=== PATIENT | female | born 1990 | race Caucasian/White ===

== ENCOUNTER 2018-11-02 20:25 | Inpatient (IN) | payer OTHER ==
[2018-11-02] MEDS ORDERED: AMPICILLIN - 2 GM in SODIUM CHLORIDE 100 ML IVPB ONE (21:05)
[2018-11-02] MEDS ORDERED: DEXTROSE 5%-LACTATED RINGERS 1,000 ML IV SCH (21:05)
--- NOTE | 2018-11-02 21:39 | HP ---
Past Medical History - Primary Care Physician PCP:: Phylicia Xavier - Admission Chief Complaint: 27 yrs 38.4/7 weeks c/o onset LP since 1.00 PM . pt in active labor . h/o GBS Pos History of Present Illness: Pnc at , [facility] wt gain 20 lbs panel 03/31/18 O Pos, HepBSag neg, Rpr nr, lead neg , Rubella igg pos, Sickle neg , lead neg , Gc/ct neg , Pap done, , CF screen neg 01/01/16 urine culture pos for GBS bacteriuria, treated with Po keflex on 04/28/18 07/30/18 Quantiferon neg , 1 hr Gtt 84, RPR nr 10/27/18 h/h 13/37.8, Plt 214, , GBS pos, gc/ct neg , Hiv nr sono 1st trimester 04/30/18 12.0 wks, edc 11/12/18 Neg Nt screen , AFP screen not done Growth songrams were done by M 07/23/18 anatomy sono done : 28.3 weeks, , Vx , post placenta, Marginal placenta cord insertion sono 36.5 days, NOEMY 17.2, post placenta, efw 2975 gm History Source: Patient, Medical Record Limitations to Obtaining History: No Limitations - Past Medical History 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 No: Gastritis, GERD Hepatobiliary: No: Hepatitis B Renal/: No: UTI ...: 3 ...Para: 2 ...LMP: 02/05/18 ... Weeks Gestation by Dates: 38.4 ...EDC by Dates: 11/12/18 ...EDC by Sono: 11/12/18 (38.4/7 weeks by sono ) Heme/Onc: Yes: Anemia. No: Sickle Cell Trait Infectious Disease: No: AIDS, HIV, STD's, Tuberculosis Psych: No: Addictions, Anxiety, Bipolar, Depression, Panic, Psychosis, Schizophrenia, Other Endocrine: No: Diabetes Insipidus, Diabetes Mellitus, Hypothyroidism - Past Surgical History Past Surgical History: Yes: None Hx Myomectomy: No Hx Transabdominal Cerclage: No - Smoking History Smoking history: Never smoked Have you smoked in the past 12 months: No - Alcohol/Substance Use Hx Alcohol Use: No History of Substance Use: reports: None - Social History History of Recent Travel: No Home Medications - Allergies Allergies/Adverse Reactions: Allergies Allergy/AdvReac Type Severity Reaction Status Date / Time No Known Allergies Allergy Verified 04/22/16 17:10 - Home Medications Home Medications: Ambulatory Orders Pnv95/Iron Fum/Folic Acid [ Caplet] 1 each PO DAILY 04/22/16 Acetaminophen [Tylenol .Regular Strength -] 650 mg PO Q3H PRN #0 tablet Ibuprofen [Motrin -] 200 mg PO Q4H PRN #0 tablet 04/24/16 Physical Exam - Maternity Vital Signs: Selected Entries 11/02/18 11/02/18 21:30 22:00 Temperature 98.2 F 98.4 F Pulse Rate 80 86 Blood Pressure 130/84 138/82 Constitutional: Yes: Well Nourished, Obese Eyes: Yes: WNL HENT: Yes: WNL, Normocephalic Neck: Yes: WNL, Trachea Midline Cardiovascular: Yes: WNL, Bruit Lungs: Clear to auscultation Breast(s): Yes: WNL - Abdominal Exam/OB Fundal Height: 38 Number of Fetuses: Single Presentation: Vertex Contractions: Yes Intensity: Mod/Strong (3-4 dates) Monitor Mode: External Heart Rate (range): 130-140 Heart Rate Location: [facility] Category: I Accelerations: Uniform Decelerations: None - Vaginal Exam/OB Vaginal Bleediing: No Speculum Exam: No Dilatation (cm): 6 Effacement (%): 100 Amniotic Membrane Status: Intact Nitrazine Test: Negative Presentation: Vertex/Position Station: -2 - Physical Exam Musculoskeletal: Yes: WNL Extremities: Yes: WNL. No: Calf Tenderness Edema: LLE: 1+, RLE: 1+ Integumentary: Yes: WNL Deep Tendon Reflex Grade: Normal +2 ...Motor Strength: WNL Psychiatric: Yes: WNL, Alert, Oriented - Labs Lab Results: Laboratory Tests 11/02/18 11/02/18 11/02/18 21:45 21:45 21:45 WBC 9.8 Hgb 13.1 Hct 37.7 MCV 84.6 Plt Count 197 PT with INR 13.10 H INR 1.11 H PTT (Actin FS) 28.3 Sodium 138 Potassium 3.7 Chloride 108 H Carbon Dioxide 21 BUN 4 L Creatinine 0.5 L Random Glucose 90 Calcium 8.2 L Blood Type Antibody Screen 11/02/18 21:45 WBC Hgb Hct MCV Plt Count PT with INR INR PTT (Actin FS) Sodium Potassium Chloride Carbon Dioxide BUN Creatinine Random Glucose Calcium Blood Type O POSITIVE Antibody Screen Negative Problem List - Problems (1) with 38 completed weeks gestation Code(s): Z3A.38 - 38 WEEKS GESTATION OF (2) Labor established Code(s): [id number] - (3) Positive GBS test Code(s): B95.1 - STREPTOCOCCUS, GROUP B, CAUSING DISEASES CLASSD ELSR Assessment/Plan 27 yrs , 38.4/7 weeks in active labor gbs pos, rx ampicillin prophylaxis pt declines pain meds trial of vaginal delivery .
[2018-11-02 21:49] VITALS: BMI 39.9
[2018-11-02 22:09] LABS: BASO % 0.2 % (0-2.0); EOS % 0.4 % (0-4.5); HEMATOCRIT 37.7 % (32.4-45.2); HEMOGLOBIN 13.1 GM/dL (10.7-15.3); LYMPH % 24.5 % (8-40); MCH 29.3 pg (25.7-33.7); MCHC 34.7 g/dl (32.0-36.0); MEAN CELL VOLUME 84.6 fl (80-96); MEAN PLT VOLUME 9.6 fl (7.5-11.1); MONO % 6.9 % (3.8-10.2); PLATELET COUNT 197 K/MM3 (134-434); RBC 4.46 M/mm3 (3.60-5.2); RDW 13.2 % (11.6-15.6); WHITE BLOOD COUNT 9.8 K/mm3 (4.0-10.0)
[2018-11-02 22:18] LABS: INR 1.11 (0.83-1.09); PROTHROMBIN TIME (PATIENT) 13.1 SEC (9.7-13.0)
[2018-11-02 22:21] LABS: ACTIVATED PTT 28.3 SECONDS (25.2-36.5)
[2018-11-02 22:31] LABS: PLATELET ESTIMATE ADEQUATE
[2018-11-02 22:34] LABS: ANION GAP 10 MMOL/L (8-16); BLOOD UREA NITROGEN 4 mg/dL (7-18); CALCIUM 8.2 mg/dL (8.5-10.1); CHLORIDE 108 mmol/L (98-107); CO2 21 mmol/L (21-32); CREATININE 0.5 mg/dL (0.55-1.3); GLUCOSE,RANDOM 90 mg/dL (74-106); POTASSIUM 3.7 mmol/L (3.5-5.1); SODIUM 138 mmol/L (136-145)
[2018-11-02] MEDS ORDERED: AMPICILLIN SODIUM 1 GM VIAL ONE (23:55)
[2018-11-02] MEDS ORDERED: LIDOCAINE HCL 1% PRESERVATIVE FREE - 30ML VIAL ONE (23:56)
[2018-11-02] MEDS ORDERED: OXYTOCIN 20 UNITS in 0.9% NS 20 UNIT/1,000 ML INFUS.BAG IV ONE (23:56)
[2018-11-03] MEDS: METHYLERGONOVINE MALEATE 0.2 MG/1 ML AMP IM PRN ×2 (00:10→05:58)
[2018-11-03] MEDS: AMPICILLIN - 1 GM in SODIUM CHLORIDE 100 ML IVPB SCH ×2 (00:30→05:55)
--- NOTE | 2018-11-03 00:40 | PN ---
Progress Note, Labor Vaginal Exam #1 Labor Exam Date: 11/02/18 Labor Exam Time: 23:52 Heart Rate (range): 170 Dilatation: 9 Effacement (%): 100 Amniotic Membrane Status: Ruptured (AROM , clear) Presentation: Vertex/Position Station: -1 (-1/0) Remarks: fhr cat-1 uc q2-3 min pt wants to push 23.54 fully dilated , vx +2 Selected Entries 11/02/18 23:00 Pulse Rate 83 Blood Pressure 138/79
--- NOTE | 2018-11-03 00:47 | PN ---
Delivery - Delivery Vaginal Delivery: No Problems, Spontaneous (baby delievered in MAY position, immediate oral & nasal suction was done 1st degree vaginal laceration noted, sutured with chr catgut #2/0 under local anesthesia .Placenta removed completely with membranes. Uterus was atonic, blood clots from uterus removed . 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 4 weeks admitted in labor pnc at [address] [place] [address] pos , she received one dose of 2 gm IV Ampicillin prior to delivery & 2nd dose after delivery pt stable .
[2018-11-03] MEDS ORDERED: BENZOCAINE 20% 57 GM BOTTLE TP PRN (00:51)
[2018-11-03] MEDS ORDERED: oxyCODONE HCL 5 MG TABLET PO PRN (00:51)
[2018-11-03] MEDS ORDERED: BISACODYL 10 MG SUPP.RECT RC PRN (00:51)
[2018-11-03] MEDS ORDERED: BENZOCAINE 28 GM HEMORRHOIDAL OINTMENT TP PRN (00:51)
[2018-11-03] MEDS ORDERED: WITCH HAZEL 50% (TUCKS) 40 PAD/JAR PAD TP PRN (00:51)
[2018-11-03] MEDS ORDERED: OXYTOCIN 20 UNITS in 0.9% NS 20 UNIT/1,000 ML INFUS.BAG IV SCH (01:00)
[2018-11-03] MEDS: FERROUS SO4 325 MG TABLET (FP) PO SCH ×2 (08:30→17:36)
[2018-11-03] MEDS: IBUPROFEN 600 MG TABLET (FP) PO PRN ×2 (08:30→17:53)
[2018-11-03] MEDS: ACETAMINOPHEN 325 MG TABLET (FP) PO PRN ×2 (08:32→17:54)
--- NOTE | 2018-11-03 09:07 | PN ---
Post Progress Note - Subjective Subjective: no complains pt was given inj Methergine .2mg im at 6.00AM Post Day: 1 Type of Delivery: Vital Signs: Vital Signs Temperature 98.3 F 11/03/18 06:04 Pulse Rate 90 11/03/18 06:04 Respiratory Rate 20 11/03/18 06:04 Blood Pressure 127/63 11/03/18 06:04 O2 Sat by Pulse Oximetry (%) 98 11/03/18 01:30 Breast Exam: Yes: Soft, Other (BF ). No: Engorged Uterus: Yes: Fundus Firm, Fundus below umbilicus Lochia: Yes: Rubra Lochia, amount: Moderate Extremities: Yes: Calves non-tender Perineum: Yes: Intact, Laceration (1st degree laceration sutured ) Activity: Ambulating - Labs Labs: CBC WBC 9.8 K/mm3 (4.0-10.0) 11/02/18 21:45 RBC 4.46 M/mm3 (3.60-5.2) 11/02/18 21:45 Hgb 13.1 GM/dL (10.7-15.3) 11/02/18 21:45 Hct 37.7 % (32.4-45.2) 11/02/18 21:45 MCV 84.6 fl (80-96) 11/02/18 21:45 MCH 29.3 pg (25.7-33.7) 11/02/18 21:45 MCHC 34.7 g/dl (32.0-36.0) 11/02/18 21:45 RDW 13.2 % (11.6-15.6) 11/02/18 21:45 Plt Count 197 K/MM3 (134-434) 11/02/18 21:45 MPV 9.6 fl (7.5-11.1) 11/02/18 21:45 Absolute Neuts (auto) 6.7 K/mm3 (1.5-8.0) 11/02/18 21:45 Neutrophils % 68.0 % (42.8-82.8) 11/02/18 21:45 Lymphocytes % 24.5 % (8-40) D 11/02/18 21:45 Monocytes % 6.9 % (3.8-10.2) 11/02/18 21:45 Eosinophils % 0.4 % (0-4.5) 11/02/18 21:45 Basophils % 0.2 % (0-2.0) 11/02/18 21:45 Nucleated RBC % 0 % (0-0) 11/02/18 21:45 Platelet Estimate Adequate 11/02/18 21:45 Platelet Comment Giant platelets 11/02/18 21:45 Problem List - Problems (1) with 38 completed weeks gestation Code(s): Z3A.38 - 38 WEEKS GESTATION OF (2) Labor established Code(s): KPE3228 - (3) Positive GBS test Code(s): B95.1 - STREPTOCOCCUS, GROUP B, CAUSING DISEASES CLASSD ELSWHR (4) Vaginal delivery Code(s): O80 - ENCOUNTER FOR FULL-TERM UNCOMPLICATED DELIVERY (5) Encounter for assessment Code(s): Z39.2 - ENCOUNTER FOR ROUTINE FOLLOW-UP Assessment/Plan stable. . plan repeat cbc today pt desires discharge tomorrow.
[2018-11-03 09:17] LABS: BASO % 0.3 % (0-2.0); EOS % 0.1 % (0-4.5); HEMATOCRIT 37.4 % (32.4-45.2); HEMOGLOBIN 12.8 GM/dL (10.7-15.3); LYMPH % 16.7 % (8-40); MCH 28.9 pg (25.7-33.7); MCHC 34.2 g/dl (32.0-36.0); MEAN CELL VOLUME 84.6 fl (80-96); MEAN PLT VOLUME 9.9 fl (7.5-11.1); MONO % 6.8 % (3.8-10.2); NEUT % 76.1 % (42.8-82.8); PLATELET COUNT 216 K/MM3 (134-434); RBC 4.42 M/mm3 (3.60-5.2); RDW 13.3 % (11.6-15.6); WHITE BLOOD COUNT 15.1 K/mm3 (4.0-10.0)
[2018-11-03] MEDS ORDERED: DIPHTH,PERTUSS(ACELL),TET 0.5 ML DISP.SYRIN IM ONE (10:00)
[2018-11-03] MEDS ORDERED: FLU VACCINE QUAD 60 MCG/0.5 ML (MDV 18-19) IM ONE (10:00)
[2018-11-03] MEDS: PRENATAL VITAMINS W/ FOLIC ACID TABLET (FP) PO SCH (10:36)
[2018-11-04] MEDS: IBUPROFEN 600 MG TABLET (FP) PO PRN (06:33)
[2018-11-04] MEDS: ACETAMINOPHEN 325 MG TABLET (FP) PO PRN (06:33)
[2018-11-04 07:07] LABS: BASO % 0.6 % (0-2.0); EOS % 0.8 % (0-4.5); HEMATOCRIT 34.3 % (32.4-45.2); MCH 27.8 pg (25.7-33.7); MCHC 32.2 g/dl (32.0-36.0); MEAN CELL VOLUME 86.3 fl (80-96); MONO % 8.1 % (3.8-10.2); NEUT % 62.5 % (42.8-82.8); PLATELET COUNT 178 K/MM3 (134-434); RBC 3.97 M/mm3 (3.60-5.2); RDW 13.3 % (11.6-15.6); WHITE BLOOD COUNT 9.5 K/mm3 (4.0-10.0)
--- NOTE | 2018-11-04 07:17 | DS ---
Physical Examination Vital Signs: Vital Signs Temperature 98.0 F 11/03/18 20:33 Pulse Rate 90 11/03/18 20:33 Respiratory Rate 20 11/03/18 20:33 Blood Pressure 111/70 11/03/18 20:33 O2 Sat by Pulse Oximetry (%) 98 11/03/18 01:30 Constitutional: Yes: Well Nourished, No Distress, Calm Eyes: Yes: WNL, Conjunctiva Clear, EOM Intact HENT: Yes: WNL, Atraumatic, Normocephalic Neck: Yes: WNL, Supple, Trachea Midline Cardiovascular: Yes: WNL, Regular Rate and Rhythm Respiratory: Yes: WNL, Regular, CTA Bilaterally Gastrointestinal: Yes: WNL, Normal Bowel Sounds Musculoskeletal: Yes: WNL Extremities: Yes: WNL Edema: No Integumentary: Yes: WNL Neurological: Yes: WNL, Alert, Oriented ...Motor Strength: WNL Psychiatric: Yes: WNL Labs: CBC, BMP 11/02/18 21:45 Discharge Summary Reason For Visit: LABOR Current Active Problems Encounter for assessment (Acute) Positive GBS test (Acute) with 38 completed weeks gestation (Acute) Vaginal delivery (Acute) Hospital Course: 27yo @ term presented in active labor Had spontaneous vaginal delivery. Her course was unremarkable. She was discharged home on PPD#2 in stable condition. Instructed to follow up for her visit in 4-6 weeks Condition: Stable - Instructions Diet, Activity, Other Instructions: Post Instructions DIET: Continue good diet high in protein, calcium, and iron rich foods. Drink at least eight (8) glasses of water daily in addition to other fluids. ct Regular diet MEDICATIONS: Continue vitamins and iron as previously directed. Motrin and Tylenol may be taken for minor discomfort. ACTIVITY: Mild to moderate exercise may be started in two (2) weeks. Take frequent rest periods. Resume normal activity after six (6) week check up. WOUND CARE OF OPERATIVE SITE: Continue use of perineal bottle until vaginal discharge stops. Keep area clean. Shower daily. Keep abdominal wound dry. Report any drainage or redness to physician. Tub baths, tampons and douches are not permitted for 6 weeks. cct Breast feeding & or Bottle feeding BREAST CARE: (For those that are not ): If engorgement occurs: Wear tight fitting bra. Take Tylenol or Motrin for pain. Apply cold packs (ice in bags to each breast ) FAMILY PLANNING: There are many control alternatives to pursue and they should be discussed at your first office visit. You may resume sexual activity after your six (6) week check up. (Remember, is not a contraceptive) NEXT PHYSICIAN APPOINTMENT: Be certain to call for a four (4) week appointment, unless otherwise directed. Call Clinic or got to Emergency Dept if you have any of the following: Heavy vaginal bleeding Painful urination Leg pain Unusual odor noted to vaginal bleeding High fever Red streaking noted on breast Post Instructions DIET: Continue good diet high in protein, calcium, and iron rich foods. Drink at least eight (8) glasses of water daily in addition to other fluids. ___ Regular diet ___ LoCarb/Low Calorie Diet ___ Diabetic Diet MEDICATIONS: Continue vitamins and iron as previously directed. Motrin and Tylenol may be taken for minor discomfort. ACTIVITY: Mild to moderate exercise may be started in two (2) weeks. Take frequent rest periods. Resume normal activity after six (6) week check up. WOUND CARE OF OPERATIVE SITE: Continue use of perineal bottle until vaginal discharge stops. Keep area clean. Shower daily. Keep abdominal wound dry. Report any drainage or redness to physician. Tub baths, tampons and douches are not permitted for 6 weeks. ____ Breast feeding ___ Bottle feeding BREAST CARE: (For those that are not ): If engorgement occurs: Wear tight fitting bra. Take Tylenol or Motrin for pain. Apply cold packs (ice in bags to each breast ) FAMILY PLANNING: There are many control alternatives to pursue and they should be discussed at your first office visit. You may resume sexual activity after your six (6) week check up. (Remember, is not a contraceptive) NEXT PHYSICIAN APPOINTMENT: Be certain to call for a six (6) week appointment, unless otherwise directed. Call Clinic or got to Emergency Dept if you have any of the following: Heavy vaginal bleeding Painful urination Leg pain Unusual odor noted to vaginal bleeding High fever Red streaking noted on breast Referrals: Phylicia Xavier MD [Staff Physician] - Disposition: HOME - Home Medications Comprehensive Discharge Medication List: Ambulatory Orders Pnv95/Iron Fum/Folic Acid [ Caplet] 1 each PO DAILY 04/22/16 Acetaminophen [Tylenol .Regular Strength -] 650 mg PO Q3H PRN tablet 11/03/18 Ferrous Sulfate [Feosol] 325 mg PO DAILY #30 tab 11/03/18 Ibuprofen [Motrin -] 200 mg PO Q4H PRN tablet 11/03/18 Vitamins (Sjr) - 1 tab PO DAILY #30 tablet 11/03/18
[2018-11-04] MEDS: FERROUS SO4 325 MG TABLET (FP) PO SCH (08:19)
[2018-11-04 09:25] VITALS: BP 138/80; PULSE 98; TEMP 98.2
[2018-11-04] MEDS: PRENATAL VITAMINS W/ FOLIC ACID TABLET (FP) PO SCH (09:45)
[2018-11-04] MEDS ORDERED: SENNOSIDES/DOCUSATE COMBO (SENNA PLUS) TABLET (UD) PO PRN (22:00)
== END 2018-11-04 14:40 | disposition home or self-care (01) | DRG 560 ==
LOC: JLDR 20:25 → J3W 11-03 02:00
PROVIDERS: ADMIT Obstetrics & Gynecology; ATTEND Obstetrics & Gynecology
PROC: 10E0XZZ Delivery of Products of Conception, External Approach (ICD-10-PCS; principal; 2018-11-02)
PROC: 0HQ9XZZ Repair Perineum Skin, External Approach (ICD-10-PCS; 2018-11-02)
DX: O99.824 Streptococcus B carrier state complicating childbirth (principal); O70.0 First degree perineal laceration during delivery; O99.214 Obesity complicating childbirth; Z3A.38 38 weeks gestation of pregnancy; Z37.0 Single live birth
CPT/HCPCS: 36415; 59409; 80048; 85025; 85610; 85730; 86593; 86850; 86900; 86901; 90686; 90715; G0008

== ENCOUNTER 2021-10-04 17:49 | Inpatient (IN) | payer OTHER ==
[2021-10-04] MEDS ORDERED: AMPICILLIN SODIUM 2 GM VIAL ONE (19:26)
[2021-10-04] MEDS ORDERED: AMPICILLIN - 2 GM in SODIUM CHLORIDE 100 ML IVPB ONE (19:30)
[2021-10-04 20:27] LABS: BASO % 0.5 % (0-2.0); EOS % 0.5 % (0-4.5); HEMATOCRIT 38.5 % (32.4-45.2); HEMOGLOBIN 12.9 GM/dL (10.7-15.3); LYMPH % 24.9 % (8-40); MCH 27.8 pg (25.7-33.7); MCHC 33.4 g/dl (32.0-36.0); MEAN CELL VOLUME 83.3 fl (80-96); MONO % 6.4 % (3.8-10.2); NEUT % 67.7 % (42.8-82.8); RBC 4.63 M/mm3 (3.60-5.2); RDW 14.4 % (11.6-15.6); WHITE BLOOD COUNT 10.4 K/mm3 (4.0-10.0)
[2021-10-04 20:39] VITALS: BMI 40.2
[2021-10-04 20:44] LABS: CALCIUM 8.6 mg/dL (8.5-10.1)
[2021-10-04 20:45] LABS: BLOOD UREA NITROGEN 5.4 mg/dL (7-18)
[2021-10-04 20:49] LABS: CREATININE 0.5 mg/dL (0.55-1.3)
[2021-10-04 21:07] LABS: MEAN PLT VOLUME 9.9 fl (7.5-11.1); PLATELET COUNT 225 10^3/uL (134-434)
[2021-10-04 21:08] LABS: PLATELET ESTIMATE ADEQUATE
[2021-10-04] MEDS ORDERED: DEXTROSE 5%-LACTATED RINGERS 1,000 ML IV SCH (22:00)
[2021-10-04] MEDS ORDERED: BUTORPHANOL TARTRATE 2 MG/ML VIAL ONE (22:04)
[2021-10-04] MEDS ORDERED: PROMETHAZINE HCL 25 MG/1 ML VIAL ONE (22:05)
[2021-10-04] MEDS ORDERED: BUTORPHANOL TARTRATE 2 MG/ML VIAL IVPB ONE (22:30)
[2021-10-04] MEDS ORDERED: PROMETHAZINE HCL 25 MG/1 ML VIAL IVPB ONE (22:30)
[2021-10-04] MEDS ORDERED: AMPICILLIN SODIUM 1 GM VIAL ONE (23:45)
[2021-10-04] MEDS: AMPICILLIN - 1 GM in SODIUM CHLORIDE 100 ML IVPB SCH (23:45)
[2021-10-05] MEDS ORDERED: LIDOCAINE HCL 1% PRESERVATIVE FREE - 30ML VIAL ONE (00:08)
[2021-10-05] MEDS ORDERED: OXYTOCIN 20 UNITS in 0.9% NS 20 UNIT/1,000 ML INFUS.BAG IV ONE ×2 (00:08→02:00)
[2021-10-05] MEDS ORDERED: OXYTOCIN 20 UNITS in 0.9% NS 20 UNIT/1,000 ML INFUS.BAG IV SCH (00:10)
[2021-10-05 00:31] LABS: INR 1.08 (0.83-1.09); PROTHROMBIN TIME (PATIENT) 12.7 SEC (9.7-13.0)
[2021-10-05 00:33] LABS: ACTIVATED PTT 29.8 SECONDS (25.2-36.5)
[2021-10-05] MEDS ORDERED: BENZOCAINE 20% 57 GM BOTTLE TP PRN (01:16)
[2021-10-05] MEDS ORDERED: BENZOCAINE 28 GM HEMORRHOIDAL OINTMENT TP PRN (01:16)
[2021-10-05] MEDS ORDERED: WITCH HAZEL 50% (TUCKS) 40 PAD/JAR PAD TP PRN (01:16)
[2021-10-05] MEDS ORDERED: METHYLERGONOVINE MALEATE 0.2 MG/1 ML AMP IM PRN (01:16)
[2021-10-05] MEDS ORDERED: BISACODYL 10 MG SUPP.RECT RC PRN (01:16)
[2021-10-05] MEDS ORDERED: OXYTOCIN 20 UNITS in 0.9% NS 1,000 ML IV SCH (01:30)
[2021-10-05] MEDS: AMPICILLIN - 1 GM in SODIUM CHLORIDE 100 ML IVPB SCH (03:38)
[2021-10-05] MEDS: ACETAMINOPHEN 325 MG TABLET (FP) PO PRN (03:39)
[2021-10-05] MEDS: IBUPROFEN 600 MG TABLET (FP) PO PRN ×2 (06:10→17:05)
[2021-10-06] MEDS: ACETAMINOPHEN 325 MG TABLET (FP) PO PRN (03:13)
[2021-10-06 08:38] LABS: BASO % 0.4 % (0-2.0); EOS % 0.8 % (0-4.5); HEMATOCRIT 33.5 % (32.4-45.2); HEMOGLOBIN 11.1 GM/dL (10.7-15.3); MCH 28.3 pg (25.7-33.7); MCHC 33.3 g/dl (32.0-36.0); MEAN CELL VOLUME 84.9 fl (80-96); MONO % 5.5 % (3.8-10.2); NEUT % 65.3 % (42.8-82.8); PLATELET COUNT 201 10^3/uL (134-434); RBC 3.94 M/mm3 (3.60-5.2); RDW 14.2 % (11.6-15.6); WHITE BLOOD COUNT 10.3 K/mm3 (4.0-10.0)
[2021-10-06] MEDS ORDERED: SENNOSIDES/DOCUSATE COMBO (SENNA PLUS) TABLET (UD) PO PRN (22:00)
[2021-10-07 10:53] VITALS: BP 139/86; PULSE 67; TEMP 98.3
== END 2021-10-07 12:40 | disposition home or self-care (01) | DRG 560 ==
LOC: JDEL 17:49 → JLDR 19:00 → J3W 10-05 03:24
PROVIDERS: ADMIT Obstetrics & Gynecology; ATTEND Obstetrics & Gynecology
PROC: 10E0XZZ Delivery of Products of Conception, External Approach (ICD-10-PCS; principal; 2021-10-05)
DX: O42.02 Full-term premature rupture of membranes, onset of labor within 24 hours of rupture (principal); Z3A.39 39 weeks gestation of pregnancy; Z37.0 Single live birth
CPT/HCPCS: 36415; 59025; 59409; 80048; 85025; 85610; 85730; 86780; 86850; 86900; 86901; C9803; U0003; U0005